=== PATIENT | female | born 1965 | race African-American/Black ===

== ENCOUNTER 2021-11-07 04:25 | Day surgery (SDC) | payer OTHER ==
[2021-11-06 09:52] VITALS: BMI 40.7
[2021-11-07] MEDS ORDERED: CEFAZOLIN 2 GM in DEXTROSE 5%-WATER - 100 ML IVPB ONE (08:05)
[2021-11-07] MEDS ORDERED: ACETAMINOPHEN INJECTION 100 ML IVPB ONE (08:28)
[2021-11-07] MEDS ORDERED: ceFAZolin SODIUM 1 GM VIAL IVPB ONE (08:41)
[2021-11-07] MEDS ORDERED: SENNOSIDES/DOCUSATE COMBO (SENNA PLUS) TABLET (UD) PO PRN (10:21)
[2021-11-07] MEDS ORDERED: IBUPROFEN 600 MG TABLET (FP) PO PRN (10:21)
[2021-11-07] MEDS ORDERED: ACETAMINOPHEN 325 MG TABLET (FP) PO PRN (10:21)
[2021-11-07] MEDS ORDERED: IBUPROFEN 800 MG/8 ML IJ IVPB PRN (10:21)
[2021-11-07] MEDS ORDERED: ONDANSETRON 4 MG/2 ML VIAL IVPUSH PRN (10:38)
[2021-11-07] MEDS ORDERED: LACTATED RINGERS SOLUTION 1,000 ML IV SCH (10:45)
[2021-11-07] MEDS: HYDROmorphone *PCA* 10MG/50ML DISP.SYRIN PCA SCH (12:00)
[2021-11-07] MEDS: DEXTROSE 5%-LACTATED RINGERS 1,000 ML IV SCH ×2 (16:05→22:51)
[2021-11-07] MEDS: CEFAZOLIN SODIUM 2 GM in DEXTROSE 5%-WATER 100 ML IVPB SCH (18:28)
[2021-11-07] MEDS: metFORMIN HCL 500 MG TABLET (FP) PO SCH (19:04)
[2021-11-07] MEDS ORDERED: LABETALOL HCL 200 MG TABLET (FP) PO SCH (20:00)
[2021-11-07] MEDS ORDERED: oxyCODONE HCL 5 MG TABLET PO PRN ×2 (22:22)
[2021-11-08] MEDS: SIMETHICONE 80 MG TAB.CHEW (FP) PO PRN ×2 (01:35→05:28)
[2021-11-08] MEDS: CEFAZOLIN SODIUM 2 GM in DEXTROSE 5%-WATER 100 ML IVPB SCH (01:35)
[2021-11-08] MEDS: HYDROmorphone *PCA* 10MG/50ML DISP.SYRIN PCA SCH (05:19)
[2021-11-08] MEDS: DEXTROSE 5%-LACTATED RINGERS 1,000 ML IV SCH (05:28)
[2021-11-08] MEDS: metFORMIN HCL 500 MG TABLET (FP) PO SCH (09:00)
[2021-11-08] MEDS ORDERED: PNEUMOC 20-VAL CONJ-DIP CRM/PF 0.5 ML SYRINGE IM ONE (10:00)
[2021-11-08] MEDS ORDERED: HYDROCHLOROTHIAZIDE 12.5 MG CAPSULE (FP) PO SCH (10:00)
[2021-11-08] MEDS ORDERED: amLODIPine BESYLATE 10 MG TABLET (FP) PO SCH (10:00)
[2021-11-08] MEDS ORDERED: FLU VACC QS2022-23(6MOS UP)/PF 60 MCG/0.5 ML SYRINGE IM ONE (10:00)
[2021-11-08 10:04] LABS: HEMATOCRIT 36.8 % (32.4-45.2); HEMOGLOBIN 11.6 GM/dL (10.7-15.3); MCH 24.5 pg (25.7-33.7); MCHC 31.5 g/dl (32.0-36.0); MEAN CELL VOLUME 77.7 fl (80-96); MEAN PLT VOLUME 8.5 fl (7.5-11.1); PLATELET COUNT 197 10^3/uL (134-434); RBC 4.73 M/mm3 (3.60-5.2); RDW 18.3 % (11.6-15.6); WHITE BLOOD COUNT 7.8 K/mm3 (4.0-10.0)
[2021-11-08] MEDS ORDERED: BISACODYL 10 MG SUPP.RECT RC PRN (10:22)
[2021-11-08 13:04] VITALS: RESP 18
[2021-11-08 17:18] VITALS: BP 132/80; PULSE 70; TEMP 98
== END 2021-11-08 16:55 | disposition home or self-care (01) ==
LOC: JASUSAT 04:25 → J2C 05:27 → UNDOADMIN 05:27 → EDSTATUS 08:00 → J3W 16:29 → JASUSAT 11-08 16:55
PROVIDERS: ATTEND Obstetrics & Gynecology
PROC: 0UT20ZZ Resection of Bilateral Ovaries, Open Approach (ICD-10-PCS; 2021-11-07)
PROC: 0UT70ZZ Resection of Bilateral Fallopian Tubes, Open Approach (ICD-10-PCS; 2021-11-07)
PROC: 0UT90ZL Resection of Uterus, Supracervical, Open Approach (ICD-10-PCS; principal; 2021-11-07 08:00)
DX: N92.4 Excessive bleeding in the premenopausal period (principal); D25.9 Leiomyoma of uterus, unspecified; I10 Essential (primary) hypertension; E11.9 Type 2 diabetes mellitus without complications; Z79.84 Long term (current) use of oral hypoglycemic drugs
CPT/HCPCS: 36415; 82962; 85027; 86850; 86900; 86901; 86922; 88305-TC; 94760